=== PATIENT | female | born 1945 | race Caucasian/White ===

== ENCOUNTER 2017-01-15 06:38 | Day surgery (SDC) | payer OTHER, BC ==
[2017-01-09 10:46] VITALS: BMI 27.1
[2017-01-15] MEDS ORDERED: PROPOFOL 20 ML ONE ×2 (06:54)
[2017-01-15 07:32] VITALS: TEMP 98.2
[2017-01-15 09:01] VITALS: BP 155/84; PULSE 78
--- NOTE | 2017-01-16 13:16 | PATH ---
Surgical Pathology Report Patient Name: EVANGELINA LAWTON I. [facility]. Rec. #: [id number] /Age/Gender: 1945 (Age: 71) / F Account: [id number] Location: [facility] Taken: 01/15/2017 Received: 01/15/2017 Reported: 01/16/2017 Physicians: Ryan Pope M.D. Specimen(s) Received A: BX DUODENUM B: BX ANTRUM C: PROXIMAL RIGHT COLON Clinical History Epigastric pain, history of colonic polyps Gastritis, colon polyp Final Diagnosis A. DUODENUM, BIOPSY: DUODENAL MUCOSA WITH NO PATHOLOGIC CHANGES. NO HISTOLOGIC EVIDENCE OF GLUTEN SENSITIVE ENTEROPATHY (CELIAC SPRUE) IDENTIFIED. B. STOMACH, ANTRUM, BIOPSY: MILD CHRONIC GASTRITIS. IMMUNOSTAIN FOR H. PYLORI IS NEGATIVE. C. COLON, PROXIMAL RIGHT, BIOPSY: HYPERPLASTIC POLYP Electronically Signed Davian Hernandez M.D. Gross Description A. Received in formalin, labeled "duodenum" is a montes, irregular portion of soft tissue measuring 0.3 cm. in greatest dimension. The specimen is submitted in toto in one cassette. B. Received in formalin, labeled "antrum" are 2 montes, irregular portions of soft tissue measuring 0.3 and 0.4 cm. in greatest dimension. The specimens are submitted in toto in one cassette. C. Received in formalin, labeled "proximal right colon" is a montes, irregular portion of soft tissue measuring 0.2 cm. in greatest dimension. The specimen is submitted in toto in one cassette. /01/15/201701/15/2017
== END 2017-01-15 09:15 | disposition home or self-care (01) ==
LOC: FASU 06:38
PROVIDERS: ATTEND Internal Medicine Gastroenterology
PROC: 0DBK8ZX Excision of Ascending Colon, Via Natural or Artificial Opening Endoscopic, Diagnostic (ICD-10-PCS; principal; 2017-01-15 08:01)
PROC: 0DB98ZX Excision of Duodenum, Via Natural or Artificial Opening Endoscopic, Diagnostic (ICD-10-PCS; 2017-01-15 08:01)
PROC: 0DB68ZX Excision of Stomach, Via Natural or Artificial Opening Endoscopic, Diagnostic (ICD-10-PCS; 2017-01-15 08:01)
DX: Z86.010 Personal history of colon polyps (principal); K63.5 Polyp of colon; K57.30 Diverticulosis of large intestine without perforation or abscess without bleeding; K29.50 Unspecified chronic gastritis without bleeding
CPT/HCPCS: 88305-TC; 88342-TC

== ENCOUNTER 2022-09-08 10:38 | Day surgery (SDC) | payer OTHER, BC ==
[2022-09-03 16:12] VITALS: BMI 29.0
[2022-09-08] MEDS ORDERED: LIDOCAINE HCL/PF 2% SDV 5ML VIAL ONE (11:59)
[2022-09-08] MEDS ORDERED: PROPOFOL 60 ML ONE (12:00)
[2022-09-08] MEDS ORDERED: METOPROLOL TARTRATE 5 MG/5 ML VIAL ONE (12:30)
[2022-09-08 13:04] VITALS: RESP 16; TEMP 98.1
[2022-09-08 13:35] VITALS: BP 130/69; PULSE 88
== END 2022-09-08 13:35 | disposition home or self-care (01) ==
LOC: FASU-ENDO 10:38
PROVIDERS: ATTEND Internal Medicine Gastroenterology
PROC: 0DB98ZX Excision of Duodenum, Via Natural or Artificial Opening Endoscopic, Diagnostic (ICD-10-PCS; 2022-09-08)
PROC: 0DB68ZX Excision of Stomach, Via Natural or Artificial Opening Endoscopic, Diagnostic (ICD-10-PCS; 2022-09-08)
PROC: 0DJD8ZZ Inspection of Lower Intestinal Tract, Via Natural or Artificial Opening Endoscopic (ICD-10-PCS; principal; 2022-09-08 12:22)
DX: D50.9 Iron deficiency anemia, unspecified (principal); K57.30 Diverticulosis of large intestine without perforation or abscess without bleeding; K29.50 Unspecified chronic gastritis without bleeding; K44.9 Diaphragmatic hernia without obstruction or gangrene
CPT/HCPCS: 82962; 88305-TC; 88342-TC